=== PATIENT | male | born 1975 | race Caucasian/White ===

== ENCOUNTER → 2017-03-11 | Outpatient (CLI) | payer OTHER ==
--- NOTE | ~2017-03-11 | CT4 ---
[facility] A Service of [facility] RADIOLOGY TEXT RESULTS PATIENT: RUSLAN CALDWELL LOCATION: [facility] : 71 UNIT #: [id number] AGE: [address]: Noelle Mac MD SEX: M ORDER DR: [id number] [place] [id number] O MR#: [id number] Acc #: [id number] NAME: RUSLAN CALDWELL : 1975 SEX: M STUDY DATE/TIME: 03/11/2017 11:20 UNIT: [facility] ROOM: STUDY DESCRIPTION: CT Abd and Pelv Wo Cont Attending Physician: Noelle Mac M.D. Referring Physician: Noelle Mac M.D. Ordering Physician: Noelle Mac M.D. Primary Care Physician: Noelle Mac M.D. MEDICAL IMAGING REPORT This report is preliminary unless electronic signature is present. EXAM CT abdomen and pelvis without contrast. INDICATION Palpable mass in the left flank for the past [address] of the abdomen and pelvis. This CT exam was performed with one or more of the following radiation dose reduction techniques: automatic exposure control, adjustment of mA and/or kV according to patient size, and iterative reconstruction. COMPARISON 01/25/2013 FINDINGS ABDOMEN WITHOUT CONTRAST: Refer to the separately dictated chest CT for thoracic findings. The liver, spleen, adrenal glands, pancreas, gallbladder have an unremarkable unenhanced appearance. Bowel loops are nondilated. Appendix is normal. No visible mass in the right or left flank. PELVIS WITHOUT CONTRAST: No pelvic mass or fluid. There is a 1.3 cm cyst in the right kidney. No aggressive appearing bone lesion. IMPRESSION 1. No acute findings. 2. No appreciable mass in the right or left flank. 3. Small right renal cyst. [facility] A Service of [facility] RADIOLOGY TEXT RESULTS PATIENT: RUSLAN CALDWELL LOCATION: [facility] : 71 UNIT #: [id number] AGE: [address]: Noelle Mac MD SEX: M ORDER DR: Dictated by... Johan Palmer M.D. THIS IS AN ELECTRONICALLY VERIFIED REPORT Johan Palmer M.D. at 03/12/2017 7:23 AM RAJAN/pablito TD: 03/11/2017 16:28 JOB #: [id number] MEDICAL IMAGING REPORT Page 1 of 1
--- NOTE | ~2017-03-11 | CT57 ---
[facility] A Service [facility] RADIOLOGY TEXT RESULTS PATIENT: RUSLAN CALDWELL LOCATION: [facility] : 71 UNIT #: [id number] AGE: [address]: Noelle Mac MD SEX: M ORDER DR: [id number] [address] [id number] [id number] O MR#: [id number] Acc #: [id number] NAME: RUSLAN CALDWELL : 1975 SEX: M STUDY DATE/TIME: 03/11/2017 11:26 UNIT: [facility] ROOM: STUDY DESCRIPTION: CT Chest Wo Cont Attending Physician: Noelle Mac M.D. Referring Physician: Noelle Mac M.D. Ordering Physician: Noelle Mac M.D. Primary Care Physician: Noelle Mac M.D. MEDICAL IMAGING REPORT This report is preliminary unless electronic signature is present. EXAM CT chest without contrast INDICATION Left pleural effusion. Left flank pain for the past [address] of the chest. This CT examination was performed with one or more of the following radiation dose reduction techniques: automatic exposure control, adjustment of mA and/or kV according to patient size, and iterative reconstruction. COMPARISON CT from 01/25/2013. FINDINGS Refer to the separately dictated CT of the abdomen and pelvis for findings below the diaphragm. No dense consolidation. Stable scarring in the lingula and anterolateral left lower lobe. There is no pleural fluid. No pneumothorax. No adenopathy. No acute findings in the included upper abdomen. No aggressive appearing bone lesion. IMPRESSION 1. No acute findings in the chest. 2. No suspicious pulmonary nodule. Dictated by... Johan Palmer M.D. [facility] A Service [facility] RADIOLOGY TEXT RESULTS PATIENT: RUSLAN CALDWELL LOCATION: [facility] : 71 UNIT #: [id number] AGE: [address]: Noelle Mac MD SEX: M ORDER DR: THIS IS AN ELECTRONICALLY VERIFIED REPORT Johan Palmer M.D. at 03/13/2017 7:06 AM RAJAN/lexie TD: 03/12/2017 08:27 JOB #: [id number] MEDICAL IMAGING REPORT Page 1 of 1
== END | disposition home or self-care (01) ==
LOC: SCT 11:19
DX: N28.1 Cyst of kidney, acquired (principal); J90 Pleural effusion, not elsewhere classified; R10.9 Unspecified abdominal pain
CPT/HCPCS: 71250; 74176